=== PATIENT | female | born 1960 | race Caucasian/White ===

== ENCOUNTER 2017-03-02 16:59 | Emergency (ER) | payer SELFPAY ==
[~2017-03-02] VITALS: Ht 165.1 cm; Wt 72.6 kg
--- NOTE | 2017-03-02 16:59 | NUR ---
Patient was BIBA at this time.
[2017-03-02 17:02] VITALS: BP 137/97
--- NOTE | 2017-03-02 17:04 | NUR ---
Patient taken to bed 02 via gurney per EMS.
--- NOTE | 2017-03-02 17:05 | NUR ---
56 YO FEMALE BIB EMS FROM FIELD FOR SUDDEN ONSET OF GENERAL WEAKNESS.DENIES N/V/D; SKIN IS PINK/WARM/DRY; AAOX4 WITH EVEN AND STEADY GAIT; LUNGS CLEAR BL; HR EVEN AND REGULAR; PT DENIES ANY FEVER, CP, SOB, OR COUGH AT THIS TIME; PATIENT STATES PAIN OF 0/10 AT THIS TIME; VSS; PATIENT POSITIONED FOR COMFORT; HOB ELEVATED; BEDRAILS UP X2; BED DOWN. ER MD MADE AWARE OF PT STATUS.
--- NOTE | 2017-03-02 17:16 | NUR ---
Dr. lozano evaluating patient at bedside.
[2017-03-02] MEDS ORDERED: NACL 0.9% 1,000 ML IV ONE (17:25)
[2017-03-02 18:40] VITALS: BP 128/88
--- NOTE | 2017-03-02 18:40 | NUR ---
Patient discharged with v/s stable. Written and verbal after care instructions given and explained. Patient verbalized understanding. Ambulatory with steady gait. All questions addressed prior to discharge. Advised to follow up with PMD.
== END 2017-03-02 18:40 | disposition home or self-care (01) ==
LOC: EDSEX 16:59 → MED 16:59
DX: R53.1 Weakness (principal); I10 Essential (primary) hypertension
CPT/HCPCS: 93005; 96360; 99284